=== PATIENT | male | born 1965 | race Caucasian/White ===

== ENCOUNTER 2016-12-04 10:52 | Emergency (ER) | payer OTHER | END 2016-12-04 11:57 | disposition home or self-care (01) | LOC: FER 10:52 | DX: S40.862A Insect bite (nonvenomous) of left upper arm, initial encounter (principal); S40.861A Insect bite (nonvenomous) of right upper arm, initial encounter; I10 Essential (primary) hypertension; E11.9 Type 2 diabetes mellitus without complications; Z88.0 Allergy status to penicillin; Z88.8 Allergy status to other drugs, medicaments and biological substances; W57.XXXA Bitten or stung by nonvenomous insect and other nonvenomous arthropods, initial encounter | CPT/HCPCS: J2930 ==

== ENCOUNTER 2020-11-16 14:44 | Emergency (ER) | payer OTHER ==
[~2020-11-16 14:44] MED LIST: CIPRO500 M1 PO; ELIQUIS5 MG PO; FLOMAX 0.4 MG0.4 MG PO; LASIX20 MG PO; NOVOLOG MI100 UNIT/3 SC; TENORMIN50 MG PO
[2020-11-16 17:05] LABS: INR 1.35 (0.9-1.2)
[2020-11-16 17:06] LABS: PTT 49.8 SECONDS (24.4-34.7)
[2020-11-16 17:11] LABS: IRON % SATURATION 16.8 %SAT (20-50)
[2020-11-16 17:18] LABS: PRO-BNP 553 pg/mL (<125)
[2020-11-16 17:29] LABS: LACTIC ACID 0.5 mmol/L (0.4-1.9)
[2020-11-16 18:05] LABS: BILIRUBIN NEGATIVE (NEGATIVE); BLOOD NEGATIVE Ery/uL (NEGATIVE); CLARITY CLEAR (CLEAR); COLOR YELLOW (YELLOW); GLUCOSE (U) NORMAL (NORMAL); LEUKOCYTES NEGATIVE Leu/uL (NEGATIVE); NITRITE NEGATIVE (NEGATIVE); PROTEIN 2+ mg/dL (NEGATIVE); UROBILINOGEN 0.2 mg/dL (0.2-1.0); pH 5.5 (5.0-9.0)
[2020-11-16 18:13] LABS: BACTERIA TRACE; URINARY WBC RARE
[2020-11-16 18:14] LABS: AMORPHOUS URATES CRYSTALS TRACE; SQUAMOUS EPITHELIAL CELLS RARE
[2020-11-16 18:54] LABS: ALBUMIN 2.8 g/dL (3.4-5.0); BILIRUBIN - TOTAL 0.4 mg/dL (0.2-1.0); BUN/CREAT RATIO (CALC) 22.5 RATIO; C-REACTIVE PROTEIN 8.4 mg/dL (<=0.90); CREATININE 3.16 mg/dL (0.67-1.17); GLOBULIN (CALCULATION) 3.8 g/dL; MAGNESIUM 2.4 mg/dL (1.8-2.4); POTASSIUM 5.2 mmol/L (3.5-5.1); TOTAL PROTEIN 6.6 g/dL (6.4-8.2)
[2020-11-17 05:08] LABS: BASOPHIL 0.5 % (0-2); HCT 24.4 % (42.0-52.0); HGB 7.7 g/dl (13.2-18.0); LYMPHOCYTE 20.7 % (15-48); MCH 27.8 pg (25.0-31.0); MCHC 31.6 g/dL (32.0-36.0); MCV 88.1 fL (78.0-100.0); MONOCYTE 8.8 % (0-12); MPV 9.1 fL (6.0-9.5); NEUTROPHIL 64.5 % (41-80); NRBC 0; PLT 287 K/uL (150-400); RBC 2.77 M/uL (4.70-6.00); RDW 14.8 % (11.5-14.0); WBC 7.5 K/uL (4.0-10.5)
[2020-11-17 05:27] LABS: ALBUMIN 2.6 g/dL (3.4-5.0); BILIRUBIN - TOTAL 0.3 mg/dL (0.2-1.0); BUN/CREAT RATIO (CALC) 22.2 RATIO; CREATININE 3.15 mg/dL (0.67-1.17); GLOBULIN (CALCULATION) 4.4 g/dL; MAGNESIUM 2.6 mg/dL (1.8-2.4); POTASSIUM 4.7 mmol/L (3.5-5.1)
[2020-11-17 06:57] LABS: BASOPHIL 0.6 % (0-2); EOSINOPHIL 3.5 % (0-5); HCT 26.7 % (42.0-52.0); HGB 8.2 g/dl (13.2-18.0); LYMPHOCYTE 14.1 % (15-48); MCH 27.5 pg (25.0-31.0); MCHC 30.7 g/dL (32.0-36.0); MCV 89.6 fL (78.0-100.0); MONOCYTE 7.5 % (0-12); MPV 9.5 fL (6.0-9.5); NEUTROPHIL 73.8 % (41-80); NRBC 0; PLT 332 K/uL (150-400); RBC 2.98 M/uL (4.70-6.00); RDW 14.6 % (11.5-14.0)
== END 2020-11-17 19:30 | disposition other institution (70) ==
LOC: FER 14:44
PROVIDERS: Emergency Medicine; Emergency Medicine Emergency Medical Services
DX: E11.65 Type 2 diabetes mellitus with hyperglycemia (principal); E11.22 Type 2 diabetes mellitus with diabetic chronic kidney disease; N18.4 Chronic kidney disease, stage 4 (severe); E61.1 Iron deficiency; E87.5 Hyperkalemia; Z20.822 Contact with and (suspected) exposure to COVID-19; Z87.01 Personal history of pneumonia (recurrent); Z86.711 Personal history of pulmonary embolism; Z88.0 Allergy status to penicillin
CPT/HCPCS: 36415; 70450; 70551; 71250; 80053; 81001; 82550; 82728; 83540; 83550; 83605; 83615; 83735; 83880; 84100; 84145; 84443; 84484; 85025; 85610; 85730; 86140; 93005; U0002